=== PATIENT | male | born 1990 | race Caucasian/White ===

== ENCOUNTER 2021-11-29 05:47 | Emergency (ER) | payer SELFPAY ==
[~2021-11-29] VITALS: Ht 177.8 cm; Wt 96.0 kg
[2021-11-29 06:00] VITALS: BP 124/74
[2021-11-29] MEDS ORDERED: IBUPROFEN 400MG TABLET PO ONE (06:45)
[2021-11-29] MEDS ORDERED: IBUP-2028 PO (07:24)
== END 2021-11-29 07:40 | disposition home or self-care (01) ==
LOC: ER 05:47
DX: M54.59 Other low back pain (principal); M25.511 Pain in right shoulder; G89.11 Acute pain due to trauma; V49.59XA Passenger injured in collision with other motor vehicles in traffic accident, initial encounter; Y93.89 Activity, other specified; Y92.411 Interstate highway as the place of occurrence of the external cause
CPT/HCPCS: 72100; 73030; 99284